=== PATIENT | female | born 1990 | race Caucasian/White ===

== ENCOUNTER 2016-08-10 19:17 | Inpatient (IN) | payer OTHER ==
[~2016-08-10] VITALS: Ht 160 cm; Wt 92.1 kg
[~2016-08-10 19:17] MED LIST: NORT1TAB3 PO; SUMA25 PO
[2016-08-10] MEDS ORDERED: LIDOCAINE HCL 1% 50 ML VIAL ONE (19:53)
[2016-08-10] MEDS ORDERED: CALNTAB (19:58)
[2016-08-10] MEDS ORDERED: CLINDAMYCIN PHOS 600 MG/4 ML VIAL ONE (20:20)
[2016-08-10] MEDS ORDERED: OXYTOCIN 10 UNIT/ML AMP ONE (20:21)
[2016-08-10] MEDS ORDERED: SODIUM CHLORIDE 0.9% INJ 100 ML ONE (20:22)
[2016-08-10 20:30] LABS: BASOPHIL # 0.1 TH/MM3 (0-0.2); BASOPHIL % 0.7 % (0.0-2.0); EOSINOPHIL # 0.2 TH/MM3 (0-0.4); EOSINOPHIL % 1.9 % (0.0-4.0); HEMATOCRIT 36.4 % (35.0-46.0); HEMO FLAGS DIFF FINAL; LYMPH % 29.5 % (9.0-44.0); LYMPHOCYTE # 2.5 TH/MM3 (1.0-4.8); MEAN CELL VOLUME 85.4 FL (80.0-100.0); MEAN CORPUSCULAR HEMOGLOBIN 29.6 PG (27.0-34.0); MEAN CORPUSCULAR HGB CONC 34.7 % (32.0-36.0); MONO % 7.7 % (0.0-8.0); NEUT % 60.2 % (16.0-70.0); PLATELET COUNT 230 TH/MM3 (150-450); RED BLOOD COUNT 4.26 MIL/MM3 (4.00-5.30); RED CELL DISTRIBUTION WIDTH 13.4 % (11.6-17.2); WHITE BLOOD COUNT 8.4 TH/MM3 (4.0-11.0)
[2016-08-10] MEDS ORDERED: CLINDAMYCIN 600 MG/NS 100 ML IV SCH ×2 (21:15)
[2016-08-10] MEDS ORDERED: LACTATED RINGER'S 1000 ML IV ONE (21:15)
[2016-08-10] MEDS ORDERED: LACTATED RINGER'S 1000 ML IV SCH (21:15)
[2016-08-10] MEDS ORDERED: CITRIC ACID-SODIUM CITRATE LIQ 30 ML UDC PO SCH (21:15)
[2016-08-10 21:47] LABS: BACTERIA, URINE RARE /hpf; BLOOD, URINE NEG (NEG); COMMENT (UR) CULT NOT INDICATED; CULTURE IF INDICATED CULT NOT INDICATED; GLUCOSE,URINE NEG (NEG); KETONE, URINE NEG (NEG); MUCUS URINE FEW /lpf (OCC); NITRITE,URINE NEG (NEG); SQUAMOUS EPITHELIAL CELL URINE 4 /hpf (0-5); URINE COLOR YELLOW (YELLW/STRAW)
[2016-08-10 21:51] VITALS: RESP 18; TEMP 98.1
[2016-08-10 21:53] VITALS: BP 122/67; PULSE 58
[2016-08-10] MEDS ORDERED: EPIDURAL-NO SYSTEMIC NARCOTICS XX PRN (23:00)
[2016-08-10] MEDS ORDERED: EPIDURAL-DO NOT ADMINISTER ANTICOAGULANTS XX PRN (23:00)
[2016-08-10] MEDS ORDERED: EPIDURAL-NALOXONE HCL 0.4 MG/ML AMP IV PRN (23:00)
[2016-08-10] MEDS ORDERED: EPIDURAL-DIPHENHYDRAMINE HCL 50 MG CAP PO PRN (23:00)
[2016-08-10] MEDS ORDERED: EPIDURAL-DIPHENHYDRAMINE HCL 50 MG/ML VIAL IV PUSH PRN (23:00)
[2016-08-10] MEDS ORDERED: LACTATED RINGER'S 1000 ML INJ 1,000 ML IV ONE (23:30)
[2016-08-10] MEDS ORDERED: METOCLOPRAMIDE HCL 10 MG/2 ML VIAL IV ONE (23:30)
[2016-08-10] MEDS ORDERED: ONDANSETRON HCL 4 MG/2 ML VIAL ONE (23:36)
[2016-08-10] MEDS ORDERED: MORPHINE SULFATE PF 5 MG/10 ML VIAL ONE (23:36)
[2016-08-10 23:45] VITALS: BP 113/63; PULSE 85; RESP 16; TEMP 97.7; O2SAT 100
[2016-08-10] MEDS ORDERED: SODIUM CHLORIDE 0.9% FLUSH 5 ML FLUSH IV PRN (23:45)
[2016-08-10] MEDS ORDERED: KETOROLAC TROMETHAMINE 60 MG/2 ML (IM) VIAL IM PRN (23:45)
[2016-08-10] MEDS ORDERED: OXYTOCIN 30 UNITS-500ML PREMIX 500 ML IV ONE (23:45)
[2016-08-10] MEDS ORDERED: SIMETHICONE 80 MG CHEWABLE TAB PO PRN (23:45)
--- NOTE | 2016-08-10 23:50 | PD.OB.DELI ---
Procedure Note Section Procedure Pre Op Diagnosis: (1) Premature rupture of membranes (PROM), delivered (2) delivery, delivered, current hospitalization Post Op Diagnosis: (1) delivery, delivered, current hospitalization (2) Premature rupture of membranes (PROM), delivered Performed by Harish Cunha Procedure: Primary Low Transverse Sec Indication for delivery: Other (primary elective) Informed consent obtained: For anesthesia, For procedure Confirmed correct: Patient, Procedure, Time-out taken Anesthesia: Spinal Monitoring during procedure: Blood pressure monitoring Urinary catheter: Inserted using sterile technique, To dependent drainage Sterile preparation: Duraprep Position: Supine with wedge to left side Operative Features Skin Incision: Pfannenstiel Uterine Incision: Low transverse w/knife / blunt ext Membranes Ruptured: Previously Presentation: Occiput posterior Delivery of : Uneventful Infant: Male One Minute : 8 Five Minute : 9 Weight: 8# 8 oz Status of : Viable Placenta delivered: Intact Medications: Antibiotics, Oxytocin Estimated blood loss: 500 Procedure tolerated: Well Maternal Condition: Stable Condition: Stable Harish Cunha MD Aug 10, 2016 23:50
[2016-08-11] VITALS (11 sets, daily range): BP systolic 108–143; BP diastolic 69–79; PULSE 56–74; RESP 16–18; TEMP 97.5–98.5; O2SAT 95–98
[2016-08-11] MEDS ORDERED: OXYTOCIN 30 UNITS-500ML PREMIX 500 ML ONE (00:47)
[2016-08-11] MEDS ORDERED: KETOROLAC TROMETHAMINE 30 MG/ML (IVP) VIAL ONE (01:06)
[2016-08-11] MEDS ORDERED: KETOROLAC TROMETHAMINE 60 MG/2 ML (IM) VIAL IM ONE (01:07)
[2016-08-11] MEDS ORDERED: LACTATED RINGER'S 1000 ML INJ 1,000 ML IV SCH (04:44)
[2016-08-11 05:56] LABS: AUTOMATED NEUTROPHIL # 9.5 TH/MM3 (1.8-7.7); BASOPHIL % 0.3 % (0.0-2.0); EOSINOPHIL # 0.1 TH/MM3 (0-0.4); EOSINOPHIL % 0.7 % (0.0-4.0); HEMATOCRIT 33.2 % (35.0-46.0); HEMO FLAGS DIFF FINAL; LYMPH % 21.2 % (9.0-44.0); LYMPHOCYTE # 2.8 TH/MM3 (1.0-4.8); MEAN CELL VOLUME 86.1 FL (80.0-100.0); MEAN CORPUSCULAR HEMOGLOBIN 28.6 PG (27.0-34.0); MEAN CORPUSCULAR HGB CONC 33.2 % (32.0-36.0); MONO % 5.8 % (0.0-8.0); PLATELET COUNT 188 TH/MM3 (150-450); RED BLOOD COUNT 3.85 MIL/MM3 (4.00-5.30); RED CELL DISTRIBUTION WIDTH 13.5 % (11.6-17.2); WHITE BLOOD COUNT 13.2 TH/MM3 (4.0-11.0)
--- NOTE | 2016-08-11 07:51 | MP ---
cc: DEYSI CUNHA M.D. DATE OF SURGERY: 08/10/2016 PROCEDURE Primary low transverse section. PREOPERATIVE DIAGNOSIS Premature rupture of membranes, term, scheduled for primary elective section. POSTOPERATIVE DIAGNOSIS Premature rupture of membranes, term, scheduled for primary elective section. SURGEON Dr. Deysi Cunha ESTIMATED BLOOD LOSS 500 cc. ANESTHESIA Spinal; Nimesh Justice CRNA, Scooter Hardwick MD COMPLICATIONS None. BENCH SCIENTIST Dr. Tran PROCEDURE IN DETAIL After informed consent the patient was taken to the operating room where she was placed under spinal anesthesia, placed in supine position with left lateral tilt. The abdomen, perineum and vagina were prepped and draped in normal sterile fashion. A Moses catheter was then placed to gravity after adequate anesthesia was assured. A timeout was taken and antibiotics were given. A Pfannenstiel skin incision was carried sharply to the skin to the fascia. The fascia was nicked in the midline. The incision was extended laterally using Corrales scissors. The rectus muscle were dissected off the fascia with sharp and blunt dissection. The rectus muscle was in the midline. The peritoneum was entered bluntly with a finger. The incision was extended laterally using blunt traction. It was noted that the uterus was midline. A bladder blade was placed and a bladder flap was created by dissecting the bladder off the lower uterine segment. A low transverse uterine incision was then made, carried sharply into the uterine cavity. Clear fluid was noted. The incision was extended laterally using blunt traction. A hand was placed in the uterus. The 's head was guided through the incision using fundal pressure the 's head readily delivered. The nose and mouth suctioned well. The cord was clamped and cut and the was handed to pediatrics in attendance. Cord blood was collected. The placenta was delivered manually. The uterus exteriorized, wiped free from all remaining products of conception. The uterine incision was then closed with running locking stitch of chromic suture. Good hemostasis achieved. The uterus was placed back in the abdomen and noted to be hemostatic. The fascia was closed with Vicryl suture. The skin was closed with a subcuticular stitch. Each layer was noted to be hemostatic prior to closure and lap and instrument counts were reported as correct at the end of the procedure. Mother went to the recovery room with the . MD CAMILLE Baker /11:54 PM /7:42 AM
--- NOTE | 2016-08-11 08:10 | HHI.OB ---
Subjective Post Day: 1 Remarks doing well. pain mild and trying to breast feed Objective Vitals/I&O Vital Signs Date Time Temp Pulse Resp B/P Pulse Ox O2 Delivery O2 Flow Rate FiO2 08/11/16 02:06 59 116/75 08/11/16 02:06 97.5 16 95 08/11/16 01:15 127/78 08/11/16 01:13 98.1 63 16 98 08/11/16 01:00 140/73 98 08/11/16 01:00 56 16 95 08/11/16 00:45 58 16 143/79 96 08/11/16 00:30 56 18 95 08/11/16 00:30 16 143/75 08/11/16 00:15 63 18 98 08/11/16 00:15 127/69 08/11/16 00:00 60 18 117/71 97 08/10/16 23:45 113/63 08/10/16 23:45 97.7 85 16 100 08/10/16 21:53 58 122/67 08/10/16 21:51 98.1 18 Objective Remarks GENERAL: Well-nourished, well-developed patient. ABDOMEN/GI: Abdomen soft, non-tender. Fundus: Firm, non-tender at umbilicus. GENITOURINARY: Light to moderate bleeding. EXTREMITIES: No cyanosis or edema, non-tender, without signs of DVT. Medications and IVs Current Medications Medications (Trade) Dose Ordered Sig/Gerson Route Start Time Stop Time Status Last Admin Lactated Ringer's 1,000 ml @ 150 mls/hr Q6H40M IV 08/10/16 21:15 (Lr 1000 ml Inj) 1,000 ml @ 100 mls/hr Q10H IV 08/11/16 04:44 08/12/16 00:43 08/11/16 06:18 (NS Flush) 2 ml BID IV 08/11/16 09:00 (NS Flush) 2 ml UNSCH PRN IV 08/10/16 23:45 (Mylicon Chew) 80 mg QID PRN PO 08/10/16 23:45 (Motrin) 600 mg Q6H PRN PO 08/10/16 23:45 (Toradol Inj) 30 mg Q6H PRN IM 08/10/16 23:45 08/11/16 23:44 08/11/16 01:08 (Percocet 5-325 Mg) 1 tab Q4H PRN PO 08/10/16 23:45 (Percocet 5-325 Mg) 2 tab Q4H PRN PO 08/10/16 23:45 (M-M-R Ii Inj) 0.5 ml ONCE ONCE SQ 08/11/16 16:00 08/11/16 16:01 (Boostrix Inj) 0.5 ml ONCE ONCE IM 08/11/16 16:00 08/11/16 16:01 Miscellaneous Information NO SYSTEMIC NARCOTICS TO BE GIVEN FO... UNSCH PRN XX 08/10/16 23:00 08/11/16 22:59 (Narcan Inj) 0.4 mg UNSCH PRN IV 08/10/16 23:00 08/11/16 22:59 (Benadryl Inj) 25 mg Q6H PRN IV PUSH 08/10/16 23:00 08/11/16 22:59 (Benadryl) 50 mg Q6H PRN PO 08/10/16 23:00 08/11/16 22:59 Miscellaneous Information ALL NURSING DEPARTMENTS UNSCH PRN XX 08/10/16 23:00 08/11/16 22:59 Assessment/Plan Problem List: (1) delivery, delivered, current hospitalization Harish Cunha MD Aug 11, 2016 08:10
[2016-08-11] MEDS ORDERED: SODIUM CHLORIDE 0.9% FLUSH 5 ML FLUSH IV SCH (09:00)
[2016-08-11] MEDS ORDERED: OXYTOCIN 30 UNITS-500ML PREMIX 500 ML IV PRN (09:45)
[2016-08-11] MEDS: IBUPROFEN 600 MG TAB PO PRN ×2 (11:00→16:55)
[2016-08-11] MEDS ORDERED: MEASLES, MUMPS, RUBELLA VACCINE 0.5 ML VIAL SQ ONE (16:00)
[2016-08-11] MEDS ORDERED: DIPHTH/TETANUS/ACEL PERTUSSIS (BOOSTER) 0.5 ML VIAL/PFS IM ONE (16:00)
[2016-08-11] MEDS: oxyCODONE/ACETAMINOPHEN 5 MG/325 MG TAB PO PRN (16:55)
[2016-08-11] MEDS: DOCUSATE SODIUM 50 MG/SENNA 8.6 MG TAB PO PRN (19:03)
[2016-08-12] MEDS: oxyCODONE/ACETAMINOPHEN 5 MG/325 MG TAB PO PRN ×3 (01:28→11:26)
[2016-08-12] MEDS: IBUPROFEN 600 MG TAB PO PRN ×2 (01:29→07:13)
[2016-08-12] MEDS: DOCUSATE SODIUM 50 MG/SENNA 8.6 MG TAB PO PRN (07:13)
[2016-08-12 07:37] VITALS: BP 120/80; PULSE 81; RESP 16; TEMP 98
--- NOTE | 2016-08-12 08:02 | HHI.OB ---
Subjective Post Day: 2 Remarks doing well dc home Objective Vitals/I&O Vital Signs Date Time Temp Pulse Resp B/P Pulse Ox O2 Delivery O2 Flow Rate FiO2 08/12/16 02:28 18 08/12/16 02:28 18 08/11/16 19:49 98.1 74 18 118/69 08/11/16 16:00 68 125/79 08/11/16 16:00 98.5 16 08/11/16 12:00 108/72 08/11/16 12:00 98.4 63 16 Objective Remarks GENERAL: Well-nourished, well-developed patient. ABDOMEN/GI: Abdomen soft, non-tender. Fundus: Firm, non-tender at umbilicus. GENITOURINARY: Light to moderate bleeding. EXTREMITIES: No cyanosis or edema, non-tender, without signs of DVT. Medications and IVs Current Medications Medications (Trade) Dose Ordered Sig/Gerson Route Start Time Stop Time Status Last Admin (Lr 1000 ml Inj) 1,000 ml @ 150 mls/hr Q6H40M IV 08/10/16 21:15 (NS Flush) 2 ml BID IV 08/11/16 09:00 (NS Flush) 2 ml UNSCH PRN IV 08/10/16 23:45 (Mylicon Chew) 80 mg QID PRN PO 08/10/16 23:45 (Motrin) 600 mg Q6H PRN PO 08/10/16 23:45 08/12/16 07:13 (Percocet 5-325 Mg) 1 tab Q4H PRN PO 08/10/16 23:45 08/12/16 01:28 (Percocet 5-325 Mg) 2 tab Q4H PRN PO 08/10/16 23:45 08/12/16 07:13 (Bridget-Colace) 2 tab Q12H PRN PO 08/11/16 19:00 08/12/16 07:13 Assessment/Plan Problem List: (1) delivery, delivered, current hospitalization Assessment and Plan dc home Harish Cunha MD Aug 12, 2016 08:02
[2016-08-12] MEDS ORDERED: OXYC1TAB63 PO (08:06)
--- NOTE | 2016-08-12 08:07 | HHI.DCPOC ---
Discharge Care Plan Diagnosis: (1) delivery, delivered, current hospitalization Report Symptoms to Your Doctor -Temperate above 100.5 degrees -Redness, of incision or excessive or foul smelling drainage -Unusual pain or calf pain -Increased vaginal bleeding -Painful or difficulty urinating -Feelings of extreme sadness or anxiety after 2 weeks Goals to Promote Your Health * To prevent worsening of your condition and complications * To maintain your health at the optimal level Directions to Meet Your Goals Take your medications as prescribed Follow your dietary instruction Follow activity as directed Ensure plenty of rest for recovery Drink fluids for hydration Keep your appointments as scheduled Take your immunizations and boosters as scheduled If your symptoms worsen call your PCP, if no PCP go to Urgent Care Center or Emergency Room Smoking is Dangerous to Your Health. Avoid second hand smoke Call the 24-hour crisis hotline for domestic abuse at Harish Cunha MD Aug 12, 2016 08:06
== END 2016-08-12 13:02 | disposition home or self-care (01) | DRG 766 ==
LOC: HOBED 19:17 → H2EB 19:37 → H1EA 08-11 01:36
PROVIDERS: ADMIT Obstetrics & Gynecology; ATTEND Obstetrics & Gynecology
PROC: 10D00Z1 Extraction of Products of Conception, Low, Open Approach (ICD-10-PCS; principal; 2016-08-10)
DX: O42.90 Premature rupture of membranes, unspecified as to length of time between rupture and onset of labor, unspecified weeks of gestation (principal); Z37.0 Single live birth
CPT/HCPCS: 81001; 84112; 85025; 86850; 86900; 86901; 99285; J1885; J2274; J2405; J2590; J2765; J7120